=== PATIENT | male | born 1960 | race Caucasian/White ===

== ENCOUNTER 2018-02-08 14:53 | Emergency (ER) | payer MEDICAID ==
[2018-02-08] MEDS: morphine 2 MG INJ IM (15:46)
[2018-02-08] MEDS: CEFAZOLIN 2 GM/50 ML (PMX) 50 ML IVPB (16:37)
== END 2018-02-08 17:18 | disposition home or self-care (01) ==
LOC: FTE 14:53
DX: T81.31XA Disruption of external operation (surgical) wound, not elsewhere classified, initial encounter (principal); Y82.8 Other medical devices associated with adverse incidents
CPT/HCPCS: 12020; 96372; 96374; 99284-25

== ENCOUNTER 2018-02-10 07:48 | Emergency (ER) | payer MEDICAID | END 2018-02-10 09:14 | disposition home or self-care (01) | LOC: FTE 07:48 | DX: Z48.01 Encounter for change or removal of surgical wound dressing (principal) | CPT/HCPCS: 99281; Z7502 ==

== ENCOUNTER 2018-02-15 09:30 | Inpatient (IN) | payer MEDICAID ==
[2018-02-15 11:38] LABS: ADD MAN DIFF? NO
[2018-02-15] MEDS: SOD CHLORIDE 0.9% 1,000 ML IV (11:46)
[2018-02-15 11:50] LABS: BASOPHIL # 0.1 10^3/ul (0.0-0.1); BASOPHILS % 0.9 % (0.0-2.0); EOSINOPHILS # 0.1 10^3/ul (0.0-0.5); EOSINOPHILS % 1.7 % (0.0-7.0); HEMATOCRIT 44.2 % (42.0-52.0); HEMOGLOBIN 14.6 g/dl (14.0-18.0); LYMPHOCYTES # 1.9 10^3/ul (0.8-2.9); LYMPHOCYTES % 28.7 % (15.0-51.0); MEAN CORPUSCULAR HEMOGLOBIN 31.2 pg (29.0-33.0); MEAN CORPUSCULAR VOLUME 94.4 fl (82.0-101.0); MEAN PLATELET VOLUME 9.6 fl (7.4-10.4); MONOCYTE # 0.6 10^3/ul (0.3-0.9); MONOCYTES % 9.6 % (0.0-11.0); NEUTROPHIL # 3.9 10^3/ul (1.6-7.5); NEUTROPHILS % 58.8 % (39.0-77.0); PLATELET COUNT 252 10^3/UL (140-415); RED BLOOD COUNT 4.68 10^6/ul (4.70-6.10); RED CELL DISTRIBUTION WIDTH 12.2 % (11.5-14.5)
[2018-02-15 11:50] LABS: WHITE BLOOD COUNT 6.7 10^3/ul (4.8-10.8)
[2018-02-15] MEDS: VANCOMYCIN 2 GM in SOD CHLORIDE 0.9% 500 ML IVPB (11:52)
[2018-02-15 12:01] LABS: INR 0.92; PROTIME 12.4 Sec (11.9-14.9)
[2018-02-15 12:03] LABS: ALANINE AMINOTRANSFERASE 41 IU/L (13-69); ALBUMIN 4.5 g/dl (3.3-4.9); ALBUMIN/GLOBULIN RATIO 1.28; ALKALINE PHOSPHATASE 68 IU/L (42-121); ANION GAP 16 (8-16); ASPARTATE AMINO TRANSFERASE 25 IU/L (15-46); BILIRUBIN,INDIRECT 0.9 mg/dl (0-1.1); BILIRUBIN,TOTAL 0.9 mg/dl (0.2-1.3); BLOOD UREA NITROGEN 19 mg/dl (7-20); CALCIUM 9.6 mg/dl (8.4-10.2); CARBON DIOXIDE 28 mmol/L (21-31); CHLORIDE 104 mmol/L (97-110); CREATININE 0.66 mg/dl (0.61-1.24); GLUCOSE 108 mg/dl (70-220); LIPASE 90 U/L (23-300); POTASSIUM 4.2 mmol/L (3.5-5.1); SODIUM 144 mmol/L (135-144)
[2018-02-15] MEDS ORDERED: morphine 4 MG/ML VIAL (13:23)
[2018-02-15] MEDS: ONDANSETRON 4 MG INJ IV (13:27)
[2018-02-15] MEDS: morphine 4 MG/ML VIAL IV (13:27)
[2018-02-15] MEDS ORDERED: ACETAMINOPHEN 325 MG TAB PO (13:30)
[2018-02-15 14:08] LABS: ADD UMIC NO; UR ASCORBIC ACID NEGATIVE (NEGATIVE); UR BILIRUBIN (Dip) NEGATIVE (NEGATIVE); UR BLOOD (Dip) NEGATIVE (NEGATIVE); UR CLARITY CLEAR (CLEAR); UR COLOR YELLOW (YELLOW); UR GLUCOSE (Dip) NEGATIVE (NEGATIVE); UR KETONES (Dip) NEGATIVE (NEGATIVE); UR LEUKOCYTE ESTERASE (Dip) NEGATIVE Leu/ul (NEGATIVE); UR NITRITE (Dip) NEGATIVE (NEGATIVE); UR SPECIFIC GRAVITY (Dip) 1.014 (1.003-1.030); UR TOTAL PROTEIN (Dip) NEGATIVE (NEGATIVE); UR UROBILINOGEN (Dip) NEGATIVE (NEGATIVE)
[2018-02-15] MEDS ORDERED: ONDANSETRON 4 MG INJ IV (14:30)
[2018-02-15] MEDS ORDERED: LORAZEPAM 2 MG INJ IV (14:30)
[2018-02-15] MEDS ORDERED: DOCUSATE SODIUM 100 MG CAP PO (14:30)
[2018-02-15] MEDS ORDERED: MAGNESIUM HYDROXIDE 30ML CUP PO (14:30)
[2018-02-15] MEDS ORDERED: NACL 0.9% 3 ML SYG IV (14:30)
[2018-02-15] MEDS ORDERED: hydrALAzine 20 MG INJ IV (14:30)
[2018-02-15] MEDS ORDERED: NITROGLYCERIN (SL) 0.4 MG TAB SL (14:30)
[2018-02-15] MEDS ORDERED: ALBUTEROL/IPRATROPIUM (NEB) 3 ML AMP HHN (14:30)
[2018-02-15] MEDS ORDERED: NA PHOSPHATE/BIPHOS 133 ML ENEMA PR (14:30)
[2018-02-15] MEDS ORDERED: VANCOMYCIN IV PER PHARMACY XX (14:30)
[2018-02-15] MEDS: HYDROCODONE/APAP (5/325) TAB PO (14:43)
[2018-02-15 14:46] LABS: PARTIAL THROMBOPLASTIN TIME 31.5 Sec (25.0-35.0)
[2018-02-15 15:01] LABS: FREE T4 (FREE THYROXINE) 0.79 ng/dl (0.64-1.79)
[2018-02-15] MEDS: SOD CHLORIDE 0.45% 1,000 ML IV (16:01)
[2018-02-15] MEDS: PIPER-TAZO 3.375 GM IV (PMX) 100 ML IVPB (17:47)
[2018-02-15] MEDS: VANCOMYCIN 1.5 GM in SOD CHLORIDE 0.9% 250 ML IVPB (20:48)
[2018-02-15] MEDS: FAMOTIDINE 20 MG TAB PO (20:48)
[2018-02-15] MEDS: HEPARIN 5,000 UNIT/0.5 ML VIAL SC (20:57)
[2018-02-15] MEDS: morphine 2 MG INJ IV (20:59)
[2018-02-15] MEDS ORDERED: VANCOMYCIN 1 GM 250 ML IVPB (22:00)
[2018-02-16] MEDS: PIPER-TAZO 3.375 GM IV (PMX) 100 ML IVPB ×4 (00:01→17:29)
[2018-02-16 06:12] LABS: ADD MAN DIFF? NO
[2018-02-16 06:22] LABS: BASOPHIL # 0.1 10^3/ul (0.0-0.1); BASOPHILS % 1.1 % (0.0-2.0); EOSINOPHILS # 0.1 10^3/ul (0.0-0.5); EOSINOPHILS % 1.8 % (0.0-7.0); HEMATOCRIT 39.1 % (42.0-52.0); HEMOGLOBIN 12.6 g/dl (14.0-18.0); LYMPHOCYTES # 2.3 10^3/ul (0.8-2.9); LYMPHOCYTES % 34.3 % (15.0-51.0); MEAN CORPUSCULAR HEMOGLOBIN 31.1 pg (29.0-33.0); MEAN CORPUSCULAR HGB CONC 32.2 g/dl (32.0-37.0); MEAN CORPUSCULAR VOLUME 96.5 fl (82.0-101.0); MEAN PLATELET VOLUME 9.4 fl (7.4-10.4); MONOCYTE # 0.6 10^3/ul (0.3-0.9); MONOCYTES % 9.2 % (0.0-11.0); NEUTROPHIL # 3.5 10^3/ul (1.6-7.5); NEUTROPHILS % 53.1 % (39.0-77.0); PLATELET COUNT 254 10^3/UL (140-415); RED BLOOD COUNT 4.05 10^6/ul (4.70-6.10); RED CELL DISTRIBUTION WIDTH 12.5 % (11.5-14.5)
[2018-02-16 06:22] LABS: WHITE BLOOD COUNT 6.6 10^3/ul (4.8-10.8)
[2018-02-16 06:45] LABS: ANION GAP 13 (8-16); BLOOD UREA NITROGEN 17 mg/dl (7-20); CALCIUM 9.1 mg/dl (8.4-10.2); CARBON DIOXIDE 31 mmol/L (21-31); CHLORIDE 106 mmol/L (97-110); CREATININE 0.79 mg/dl (0.61-1.24); GLUCOSE 103 mg/dl (70-220); MAGNESIUM 1.9 mg/dl (1.7-2.5); PHOSPHORUS 4.7 mg/dl (2.5-4.9); POTASSIUM 4.6 mmol/L (3.5-5.1); SODIUM 145 mmol/L (135-144)
[2018-02-16 07:00] LABS: HDL CHOLESTEROL 37 mg/dl (28-71); LDL CHOLESTEROL,CALCULATED 135 mg/dl; TRIGLYCERIDES 254 mg/dl (0-149)
[2018-02-16 07:00] LABS: CHOLESTEROL 223 mg/dl (100-200)
[2018-02-16] MEDS: SOD CHLORIDE 0.45% 1,000 ML IV ×2 (07:20→17:29)
[2018-02-16 07:23] LABS: HEMOGLOBIN A1C 5.5 % (0-5.9)
[2018-02-16] MEDS: VANCOMYCIN 1.5 GM in SOD CHLORIDE 0.9% 250 ML IVPB (08:35)
[2018-02-16] MEDS: FAMOTIDINE 20 MG TAB PO ×2 (08:37→21:05)
[2018-02-16] MEDS: HEPARIN 5,000 UNIT/0.5 ML VIAL SC ×2 (08:39→21:08)
[2018-02-16] MEDS: FENOFIBRATE 48 MG TAB PO (11:23)
[2018-02-16] MEDS: morphine 2 MG INJ IV (12:06)
[2018-02-16] MEDS: HYDROCODONE/APAP (5/325) TAB PO (21:08)
[2018-02-16] MEDS: VANCOMYCIN 1.75 GM in SOD CHLORIDE 0.9% 500 ML IVPB (22:30)
[2018-02-17] MEDS: PIPER-TAZO 3.375 GM IV (PMX) 100 ML IVPB ×4 (00:33→18:13)
[2018-02-17 05:49] LABS: ADD MAN DIFF? NO
[2018-02-17 05:53] LABS: BASOPHIL # 0.1 10^3/ul (0.0-0.1); BASOPHILS % 1.1 % (0.0-2.0); EOSINOPHILS # 0.1 10^3/ul (0.0-0.5); EOSINOPHILS % 2.1 % (0.0-7.0); HEMATOCRIT 37.5 % (42.0-52.0); HEMOGLOBIN 12.5 g/dl (14.0-18.0); LYMPHOCYTES # 2.4 10^3/ul (0.8-2.9); LYMPHOCYTES % 41.9 % (15.0-51.0); MEAN CORPUSCULAR HEMOGLOBIN 31.7 pg (29.0-33.0); MEAN CORPUSCULAR HGB CONC 33.3 g/dl (32.0-37.0); MEAN CORPUSCULAR VOLUME 95.2 fl (82.0-101.0); MEAN PLATELET VOLUME 9.3 fl (7.4-10.4); MONOCYTE # 0.5 10^3/ul (0.3-0.9); MONOCYTES % 9.6 % (0.0-11.0); NEUTROPHIL # 2.6 10^3/ul (1.6-7.5); NEUTROPHILS % 45.1 % (39.0-77.0); PLATELET COUNT 249 10^3/UL (140-415); RED BLOOD COUNT 3.94 10^6/ul (4.70-6.10); RED CELL DISTRIBUTION WIDTH 12.1 % (11.5-14.5)
[2018-02-17 05:53] LABS: WHITE BLOOD COUNT 5.7 10^3/ul (4.8-10.8)
[2018-02-17 06:15] LABS: ANION GAP 14 (8-16); BLOOD UREA NITROGEN 13 mg/dl (7-20); CALCIUM 8.9 mg/dl (8.4-10.2); CARBON DIOXIDE 26 mmol/L (21-31); CHLORIDE 108 mmol/L (97-110); CREATININE 0.68 mg/dl (0.61-1.24); GLUCOSE 109 mg/dl (70-220); POTASSIUM 4.1 mmol/L (3.5-5.1); SODIUM 144 mmol/L (135-144)
[2018-02-17] MEDS: VANCOMYCIN 1.75 GM in SOD CHLORIDE 0.9% 500 ML IVPB ×2 (08:36→20:49)
[2018-02-17] MEDS: FAMOTIDINE 20 MG TAB PO ×2 (08:36→20:49)
[2018-02-17] MEDS: FENOFIBRATE 48 MG TAB PO (08:36)
[2018-02-17] MEDS: HEPARIN 5,000 UNIT/0.5 ML VIAL SC ×2 (08:40→20:54)
[2018-02-17] MEDS: SOD CHLORIDE 0.45% 1,000 ML IV ×2 (10:00→20:49)
[2018-02-17] MEDS: HYDROCODONE/APAP (5/325) TAB PO ×2 (16:21→23:16)
[2018-02-18] MEDS: PIPER-TAZO 3.375 GM IV (PMX) 100 ML IVPB ×4 (00:18→17:43)
[2018-02-18 08:52] LABS: ADD MAN DIFF? NO
[2018-02-18] MEDS: VANCOMYCIN 1.75 GM in SOD CHLORIDE 0.9% 500 ML IVPB ×2 (08:57→21:02)
[2018-02-18] MEDS: FAMOTIDINE 20 MG TAB PO ×2 (08:57→21:02)
[2018-02-18] MEDS: HEPARIN 5,000 UNIT/0.5 ML VIAL SC ×2 (08:59→21:13)
[2018-02-18 09:02] LABS: BASOPHIL # 0.1 10^3/ul (0.0-0.1); BASOPHILS % 1.1 % (0.0-2.0); EOSINOPHILS # 0.2 10^3/ul (0.0-0.5); EOSINOPHILS % 3.6 % (0.0-7.0); HEMATOCRIT 39.8 % (42.0-52.0); HEMOGLOBIN 13.3 g/dl (14.0-18.0); LYMPHOCYTES # 2.1 10^3/ul (0.8-2.9); LYMPHOCYTES % 36.7 % (15.0-51.0); MEAN CORPUSCULAR HEMOGLOBIN 31.8 pg (29.0-33.0); MEAN CORPUSCULAR HGB CONC 33.4 g/dl (32.0-37.0); MEAN CORPUSCULAR VOLUME 95.2 fl (82.0-101.0); MEAN PLATELET VOLUME 9.7 fl (7.4-10.4); MONOCYTE # 0.5 10^3/ul (0.3-0.9); MONOCYTES % 9.3 % (0.0-11.0); NEUTROPHIL # 2.8 10^3/ul (1.6-7.5); NEUTROPHILS % 49.1 % (39.0-77.0); PLATELET COUNT 284 10^3/UL (140-415); RED BLOOD COUNT 4.18 10^6/ul (4.70-6.10); RED CELL DISTRIBUTION WIDTH 12.1 % (11.5-14.5)
[2018-02-18 09:02] LABS: WHITE BLOOD COUNT 5.6 10^3/ul (4.8-10.8)
[2018-02-18 09:21] LABS: ANION GAP 14 (8-16); BLOOD UREA NITROGEN 12 mg/dl (7-20); CALCIUM 9.4 mg/dl (8.4-10.2); CARBON DIOXIDE 30 mmol/L (21-31); CHLORIDE 105 mmol/L (97-110); CREATININE 0.86 mg/dl (0.61-1.24); GLUCOSE 106 mg/dl (70-220); POTASSIUM 4.1 mmol/L (3.5-5.1); SODIUM 145 mmol/L (135-144)
[2018-02-18] MEDS: HYDROCODONE/APAP (5/325) TAB PO ×2 (09:51→21:02)
[2018-02-18] MEDS: SOD CHLORIDE 0.45% 1,000 ML IV (12:40)
[2018-02-18 20:33] LABS: VANCOMYCIN,TROUGH 12.4 ug/ml (10.0-20.0)
[2018-02-19] MEDS: PIPER-TAZO 3.375 GM IV (PMX) 100 ML IVPB ×4 (01:03→17:45)
[2018-02-19] MEDS: SOD CHLORIDE 0.45% 1,000 ML IV (01:04)
[2018-02-19] MEDS: morphine LIQ (10 MG/5 ML) CUP PO (01:26)
[2018-02-19] MEDS: FAMOTIDINE 20 MG TAB PO ×2 (09:28→21:08)
[2018-02-19] MEDS: HEPARIN 5,000 UNIT/0.5 ML VIAL SC ×2 (09:31→21:19)
[2018-02-19] MEDS: VANCOMYCIN 1.75 GM in SOD CHLORIDE 0.9% 500 ML IVPB ×2 (09:35→21:12)
[2018-02-19 11:10] LABS: ADD MAN DIFF? NO
[2018-02-19 11:20] LABS: BASOPHIL # 0.1 10^3/ul (0.0-0.1); BASOPHILS % 1.4 % (0.0-2.0); EOSINOPHILS # 0.2 10^3/ul (0.0-0.5); HEMATOCRIT 39.7 % (42.0-52.0); HEMOGLOBIN 12.9 g/dl (14.0-18.0); LYMPHOCYTES % 34.2 % (15.0-51.0); MEAN CORPUSCULAR HEMOGLOBIN 30.8 pg (29.0-33.0); MEAN CORPUSCULAR HGB CONC 32.5 g/dl (32.0-37.0); MEAN CORPUSCULAR VOLUME 94.7 fl (82.0-101.0); MEAN PLATELET VOLUME 9.2 fl (7.4-10.4); MONOCYTE # 0.6 10^3/ul (0.3-0.9); MONOCYTES % 11.2 % (0.0-11.0); NEUTROPHIL # 2.9 10^3/ul (1.6-7.5); PLATELET COUNT 271 10^3/UL (140-415); RED BLOOD COUNT 4.19 10^6/ul (4.70-6.10); RED CELL DISTRIBUTION WIDTH 12.1 % (11.5-14.5)
[2018-02-19 11:20] LABS: WHITE BLOOD COUNT 5.7 10^3/ul (4.8-10.8)
[2018-02-19 11:43] LABS: ANION GAP 11 (8-16); BLOOD UREA NITROGEN 10 mg/dl (7-20); CALCIUM 9.6 mg/dl (8.4-10.2); CARBON DIOXIDE 34 mmol/L (21-31); CHLORIDE 105 mmol/L (97-110); CREATININE 0.89 mg/dl (0.61-1.24); GLUCOSE 102 mg/dl (70-220); POTASSIUM 4.3 mmol/L (3.5-5.1); SODIUM 146 mmol/L (135-144)
[2018-02-19] MEDS: ACETAMINOPHEN 325 MG TAB PO (23:08)
[2018-02-20] MEDS: PIPER-TAZO 3.375 GM IV (PMX) 100 ML IVPB ×2 (01:38→06:09)
[2018-02-20] MEDS: FAMOTIDINE 20 MG TAB PO ×2 (09:16→21:01)
[2018-02-20] MEDS: HEPARIN 5,000 UNIT/0.5 ML VIAL SC ×2 (09:16→21:07)
[2018-02-20] MEDS: VANCOMYCIN 1.75 GM in SOD CHLORIDE 0.9% 500 ML IVPB ×2 (09:16→21:01)
[2018-02-20] MEDS: CIPROFLOXACIN 500 MG TAB PO ×2 (10:40→18:18)
[2018-02-20 10:52] LABS: ADD MAN DIFF? NO
[2018-02-20 10:55] LABS: BASOPHIL # 0.1 10^3/ul (0.0-0.1); BASOPHILS % 1.3 % (0.0-2.0); EOSINOPHILS # 0.2 10^3/ul (0.0-0.5); EOSINOPHILS % 3.6 % (0.0-7.0); HEMATOCRIT 40.4 % (42.0-52.0); HEMOGLOBIN 13.2 g/dl (14.0-18.0); LYMPHOCYTES # 1.8 10^3/ul (0.8-2.9); LYMPHOCYTES % 34.6 % (15.0-51.0); MEAN CORPUSCULAR HEMOGLOBIN 31.4 pg (29.0-33.0); MEAN CORPUSCULAR HGB CONC 32.7 g/dl (32.0-37.0); MEAN PLATELET VOLUME 9.2 fl (7.4-10.4); MONOCYTE # 0.4 10^3/ul (0.3-0.9); MONOCYTES % 6.8 % (0.0-11.0); NEUTROPHIL # 2.8 10^3/ul (1.6-7.5); NEUTROPHILS % 53.3 % (39.0-77.0); PLATELET COUNT 301 10^3/UL (140-415); RED BLOOD COUNT 4.21 10^6/ul (4.70-6.10); RED CELL DISTRIBUTION WIDTH 12.1 % (11.5-14.5)
[2018-02-20 10:55] LABS: WHITE BLOOD COUNT 5.3 10^3/ul (4.8-10.8)
[2018-02-20 11:18] LABS: ANION GAP 15 (8-16); BLOOD UREA NITROGEN 14 mg/dl (7-20); CALCIUM 9.7 mg/dl (8.4-10.2); CARBON DIOXIDE 33 mmol/L (21-31); CHLORIDE 107 mmol/L (97-110); CREATININE 0.97 mg/dl (0.61-1.24); GLUCOSE 143 mg/dl (70-220); POTASSIUM 4.7 mmol/L (3.5-5.1); SODIUM 150 mmol/L (135-144)
[2018-02-21] MEDS: HYDROCODONE/APAP (5/325) TAB PO (01:10)
[2018-02-21] MEDS: CIPROFLOXACIN 500 MG TAB PO (07:05)
[2018-02-21] MEDS: VANCOMYCIN 1.75 GM in SOD CHLORIDE 0.9% 500 ML IVPB (08:31)
[2018-02-21] MEDS: FAMOTIDINE 20 MG TAB PO (08:33)
[2018-02-21] MEDS: HEPARIN 5,000 UNIT/0.5 ML VIAL SC (08:35)
[2018-02-21 09:18] LABS: ADD MAN DIFF? NO; BASOPHIL # 0.1 10^3/ul (0.0-0.1); BASOPHILS % 1.3 % (0.0-2.0); EOSINOPHILS # 0.2 10^3/ul (0.0-0.5); EOSINOPHILS % 3.5 % (0.0-7.0); HEMOGLOBIN 13.5 g/dl (14.0-18.0); LYMPHOCYTES % 31.8 % (15.0-51.0); MEAN CORPUSCULAR HEMOGLOBIN 31.7 pg (29.0-33.0); MEAN CORPUSCULAR HGB CONC 32.9 g/dl (32.0-37.0); MEAN CORPUSCULAR VOLUME 96.2 fl (82.0-101.0); MEAN PLATELET VOLUME 9.2 fl (7.4-10.4); MONOCYTE # 0.6 10^3/ul (0.3-0.9); MONOCYTES % 9.8 % (0.0-11.0); NEUTROPHIL # 3.3 10^3/ul (1.6-7.5); NEUTROPHILS % 53.4 % (39.0-77.0); PLATELET COUNT 300 10^3/UL (140-415); RED BLOOD COUNT 4.26 10^6/ul (4.70-6.10); RED CELL DISTRIBUTION WIDTH 12.2 % (11.5-14.5)
[2018-02-21 09:18] LABS: WHITE BLOOD COUNT 6.2 10^3/ul (4.8-10.8)
[2018-02-21 09:48] LABS: ANION GAP 14 (8-16); BLOOD UREA NITROGEN 15 mg/dl (7-20); CALCIUM 9.8 mg/dl (8.4-10.2); CARBON DIOXIDE 31 mmol/L (21-31); CHLORIDE 108 mmol/L (97-110); GLUCOSE 106 mg/dl (70-220); SODIUM 149 mmol/L (135-144)
== END 2018-02-21 14:55 | disposition home or self-care (01) | DRG 863 ==
LOC: E/R 09:30 → MS2 13:17
DX: T81.4XXA Infection following a procedure, initial encounter (principal); L03.319 Cellulitis of trunk, unspecified; N39.0 Urinary tract infection, site not specified; Z68.41 Body mass index [BMI] 40.0-44.9, adult; E87.0 Hyperosmolality and hypernatremia; E66.01 Morbid (severe) obesity due to excess calories; E78.5 Hyperlipidemia, unspecified; D64.9 Anemia, unspecified; Z72.0 Tobacco use; B96.20 Unspecified Escherichia coli [E. coli] as the cause of diseases classified elsewhere; B95.2 Enterococcus as the cause of diseases classified elsewhere
CPT/HCPCS: 36415; 72195; 76536; 80048; 80053; 80061; 80202; 81003; 83036; 83690; 83735; 84100; 84439; 84443; 85025; 85610; 85730; 87040; 87070; 87086; 92610; 96374; 96375; 97161; 97167; 99285-25